=== PATIENT | female | born 1985 | race Caucasian/White ===

== ENCOUNTER 2024-02-21 11:41 | Emergency (ER) | payer MEDICAID ==
[~2024-02-21] VITALS: Ht 160 cm; Wt 64.0 kg
[2024-02-21 11:46] VITALS: BP 112/70; PULSE 84; RESP 16; TEMP 96.7; O2SAT 98
[2024-02-21] MEDS ORDERED: ACETAMINOPHEN 325MG TABLET PO ONE (12:00)
== END 2024-02-21 12:52 | disposition left against medical advice (07) ==
LOC: ER 11:41
DX: R05.9 Cough, unspecified (principal); R09.81 Nasal congestion; R50.9 Fever, unspecified
CPT/HCPCS: 99283